=== PATIENT | male | born 1960 | race Caucasian/White ===

== ENCOUNTER 2025-01-08 14:30 | Inpatient (IN) | payer MEDICAID ==
[~2025-01-08] VITALS: Ht 165.1 cm; Wt 64.0 kg
[2025-01-08 15:05] LABS: BASOPHILS % 1.6 % (0.0-2.0); HEMATOCRIT. 31.4 % (42.0-52.0); LYMPHOCYTES % 8.9 % (20.0-50.0); MEAN CORPUSCULAR HEMOGLOBIN 29.8 pg (28.0-32.0); MEAN CORPUSCULAR HGB CONC 31.9 g/dL (31.0-37.0); MEAN CORPUSCULAR VOLUME 93.4 fL (80.0-94.0); MEAN PLATELET VOLUME 8.9 fl (7.4-10.4); MONOCYTES % 12.5 % (2.0-8.0); PLATELET 134 x1000/uL (130-400); RED BLOOD CELL COUNT 3.36 mill/uL (4.7-6.1); RED CELL DISTRIBUTION WIDTH 15.5 % (11.6-14.6); WHITE BLOOD COUNT 5.4 x1000/uL (4.5-11.0)
[2025-01-08 15:14] LABS: INR 1.1; PROTHROMBIN TIME 11.7 sec (9.6-11.0)
[2025-01-08 15:17] LABS: CHLORIDE 95 mEq/L (98-107)
[2025-01-08 15:18] LABS: SODIUM 139 mEq/L (136-145)
[2025-01-08 15:19] LABS: CARBON DIOXIDE 34 mEq/L (21-32)
[2025-01-08 15:20] LABS: CALCIUM 8.7 mg/dL (8.7-10.4)
[2025-01-08 15:24] LABS: CREATININE 2.2 mg/dL (0.6-1.3); GLUCOSE 108 mg/dL (70-105)
[2025-01-08 15:25] LABS: UREA NITROGEN BLOOD 14 mg/dL (9-23)
[2025-01-08 15:26] LABS: ALANINE AMINOTRANSFERASE 8 IU/L (10-49); ALBUMIN 3.4 g/dL (3.2-4.8); ASPARTATE AMINOTRANSFERASE 12 IU/L (<34)
[2025-01-08 15:27] LABS: BILIRUBIN DIRECT 0.3 mg/dL (<=3.0); BILIRUBIN TOTAL 0.5 mg/dL (0.1-1.0); PROTEIN TOTAL 7.2 g/dL (6.0-8.3)
[2025-01-08 15:33] LABS: TROPONIN I HIGH SENSITIVITY 231 ng/L (3.0-53)
[2025-01-08] MEDS: HYDRALAZINE HCL 25MG TABLET PO PRN (17:31)
[2025-01-08] MEDS: POTASSIUM CHLORIDE 20MEQ/PACKET PO NR ×2 (17:31→21:19)
[2025-01-08] MEDS ORDERED: IPRATROPIUM/ALBUTEROL 0.5-3(2.5)MG/3ML NEB HHN PRN (18:15)
[2025-01-08] MEDS ORDERED: ONDANSETRON HCL 4MG/2ML INJ IV PRN (18:15)
[2025-01-08] MEDS ORDERED: ACETAMINOPHEN 325MG TABLET PO PRN (18:15)
[2025-01-08 20:00] VITALS: BP_SYST 154; BP_SYST 177; BP_DIAS 86; BP_DIAS 90; PULSE 60; PULSE 62; RESP 16; RESP 18; TEMP 36.3; TEMP 36.6; O2SAT 94
[2025-01-08 20:45] LABS: AMMONIA < 17 uMol/L (<32)
[2025-01-08 20:46] LABS: PHOSPHORUS 4.3 mg/dL (2.5-4.9)
[2025-01-08] MEDS: ASPIRIN 325MG EC TABLET PO NR (21:19)
[2025-01-08] MEDS: ENOXAPARIN 80MG/0.8ML SYR SUBCUT NR (21:19)
[2025-01-08] MEDS: ATORVASTATIN CALCIUM 40MG TABLET PO SCH (21:20)
[2025-01-08 22:28] LABS: CREATINE KINASE 34 IU/L (46-171)
[2025-01-09] VITALS: BP 158/85; PULSE 66; RESP 16; TEMP 36.3; O2SAT 96
[2025-01-09] MEDS ORDERED: DEXTROSE 50% WATER 50ML SYRINGE IV PRN (02:00)
[2025-01-09 04:00] VITALS: BP 171/92; PULSE 72; RESP 18; TEMP 36.6; O2SAT 95
[2025-01-09] MEDS: CLONIDINE 0.1MG TABLET PO PRN (05:23)
[2025-01-09] MEDS: BLOOD SUGAR DIAGNOSTIC STRIP TEST SCH (06:45)
[2025-01-09] MEDS: PANTOPRAZOLE 40MG DR TABLET PO SCH (06:48)
[2025-01-09] MEDS: INSULIN LISPRO 100 UNITS/ML SUBCUT SCH (07:15)
[2025-01-09 07:41] LABS: HEMATOCRIT 33.2 % (42.0-52.0); HEMOGLOBIN 10.7 g/dL (14.0-18.0); MEAN CORPUSCULAR HEMOGLOBIN 29.9 pg (28.0-32.0); MEAN CORPUSCULAR HGB CONC 32.3 g/dL (31.0-37.0); MEAN CORPUSCULAR VOLUME 92.6 fL (80.0-94.0); PLATELET 139 x1000/uL (130-400); RED BLOOD CELL COUNT 3.59 mill/uL (4.7-6.1); RED CELL DISTRIBUTION WIDTH 15.5 % (11.6-14.6); WHITE BLOOD COUNT 4.7 x1000/uL (4.5-11.0)
[2025-01-09 07:48] LABS: CHLORIDE 98 mEq/L (98-107); POTASSIUM 4.7 mEq/L (3.5-5.1); SODIUM 140 mEq/L (136-145)
[2025-01-09 07:49] LABS: CALCIUM 9.3 mg/dL (8.7-10.4); CARBON DIOXIDE 33 mEq/L (21-32)
[2025-01-09 07:54] LABS: GLUCOSE 89 mg/dL (70-105); UREA NITROGEN BLOOD 23 mg/dL (9-23)
[2025-01-09 07:55] LABS: CREATINE KINASE 30 IU/L (46-171)
[2025-01-09 07:56] LABS: CREATININE 3.1 mg/dL (0.6-1.3); PHOSPHORUS 4.7 mg/dL (2.5-4.9)
[2025-01-09 08:00] VITALS: BP 116/84; PULSE 90; RESP 18; TEMP 37.3
[2025-01-09] MEDS: ASPIRIN 81MG EC TABLET PO SCH (10:42)
[2025-01-09 12:00] VITALS: BP 177/85; PULSE 62; RESP 16; TEMP 36.5; O2SAT 100
[2025-01-09 16:00] VITALS: BP 174/80; PULSE 63; RESP 22; TEMP 36.5; O2SAT 97
[2025-01-09 20:00] VITALS: BP 178/82; PULSE 65; RESP 17; TEMP 36.4; O2SAT 99
[2025-01-09] MEDS: AMLODIPINE 5MG TABLET PO SCH (21:27)
[2025-01-10] VITALS (11 sets, daily range): BP systolic 118–182; BP diastolic 53–86; PULSE 52–67; RESP 15–30; TEMP 36.114–36.7; O2SAT 93–100
[2025-01-10 06:11] LABS: HEMATOCRIT 32.9 % (42.0-52.0); HEMOGLOBIN 10.8 g/dL (14.0-18.0); MEAN CORPUSCULAR HGB CONC 32.7 g/dL (31.0-37.0); MEAN CORPUSCULAR VOLUME 91.8 fL (80.0-94.0); PLATELET 147 x1000/uL (130-400); RED BLOOD CELL COUNT 3.59 mill/uL (4.7-6.1); RED CELL DISTRIBUTION WIDTH 15.4 % (11.6-14.6); WHITE BLOOD COUNT 5.1 x1000/uL (4.5-11.0)
[2025-01-10 06:24] LABS: CHLORIDE 98 mEq/L (98-107); POTASSIUM 4.6 mEq/L (3.5-5.1); SODIUM 140 mEq/L (136-145)
[2025-01-10 06:25] LABS: CALCIUM 9.4 mg/dL (8.7-10.4); CARBON DIOXIDE 32 mEq/L (21-32)
[2025-01-10 06:30] LABS: GLUCOSE 78 mg/dL (70-105); UREA NITROGEN BLOOD 36 mg/dL (9-23)
[2025-01-10 06:33] LABS: PHOSPHORUS 5.8 mg/dL (2.5-4.9)
[2025-01-10 08:44] LABS: CREATININE 4.1 mg/dL (0.6-1.3)
[2025-01-10] MEDS: LOSARTAN 25 MG TABLET PO SCH (09:52)
[2025-01-10 13:29] LABS: HEPATITIS B SURFACE ANTIGEN NEGATIVE (Negative)
[2025-01-10 13:50] LABS: HEPATITIS A AB IGM NEGATIVE (Negative)
[2025-01-10 13:51] LABS: HEPATITIS B CORE AB IGM NEGATIVE (Negative); HEPATITIS C AB NON REACTIVE (Neg) (Negative)
[2025-01-10] MEDS ORDERED: HYDR100T31 PO (13:51)
[2025-01-10] MEDS ORDERED: LIDOCAINE HCL/EPINEPHRINE 1%-EPI 1:100,000 20ML VIAL ONE (15:30)
[2025-01-10] MEDS ORDERED: LIDOCAINE HCL/PF 2% 20MG/ML 5 ML/VIAL ONE (15:50)
[2025-01-10 18:12] LABS: CREATININE 4.7 mg/dL (0.6-1.3)
[2025-01-10 18:54] LABS: BG CARBOXYHEMOGLOBIN 0.9 % (0.5-1.5); BG DEOXYHEMOGLOBIN 9.3 % (0.0-5.0); BG FRACTION INSPIRED OXYGEN 21; BG HCO3 ACT 29.6 mmol/L (21.0-28.0); BG METHEMOGLOBIN 0.3 % (0.5-1.5); BG OXYGEN SATURATION 90.6 % (94.0-98.0); BG OXYHEMOGLOBIN 89.5 % (94.0-98.0); BG PCO2 69.4 mmHg (35.0-48.0); BG PH 7.248 (7.350-7.450); BG PO2 67.9 mmHg (83.0-108.0); BG SAMPLE SITE RIGHT BRACHIAL; BG TOTAL HEMOGLOBIN 11.4 g/dL (13.5-17.5); BG VENT MODE ROOM AIR
[2025-01-10] MEDS: HYDRALAZINE HCL 100MG TABLET PO SCH (19:28)
[2025-01-10] MEDS: CARVEDILOL 3.125 MG TABLET PO SCH (21:37)
[2025-01-11] VITALS (19 sets, daily range): BP systolic 99–176; BP diastolic 57–88; PULSE 53–82; RESP 16–20; TEMP 36.114–36.5; O2SAT 92–98
[2025-01-11 06:18] LABS: CHLORIDE 103 mEq/L (98-107); HEMATOCRIT 35.6 % (42.0-52.0); HEMOGLOBIN 11.6 g/dL (14.0-18.0); MEAN CORPUSCULAR HEMOGLOBIN 30.1 pg (28.0-32.0); MEAN CORPUSCULAR HGB CONC 32.6 g/dL (31.0-37.0); MEAN CORPUSCULAR VOLUME 92.3 fL (80.0-94.0); PLATELET 149 x1000/uL (130-400); POTASSIUM 3.6 mEq/L (3.5-5.1); RED BLOOD CELL COUNT 3.85 mill/uL (4.7-6.1); RED CELL DISTRIBUTION WIDTH 15.5 % (11.6-14.6); SODIUM 142 mEq/L (136-145); WHITE BLOOD COUNT 3.7 x1000/uL (4.5-11.0)
[2025-01-11 06:19] LABS: CALCIUM 9.2 mg/dL (8.7-10.4); CARBON DIOXIDE 31 mEq/L (21-32)
[2025-01-11 06:24] LABS: GLUCOSE 82 mg/dL (70-105); UREA NITROGEN BLOOD 14 mg/dL (9-23)
[2025-01-11 06:27] LABS: PHOSPHORUS 3.5 mg/dL (2.5-4.9)
[2025-01-11 06:48] LABS: CREATININE 2.6 mg/dL (0.6-1.3)
[2025-01-11] MEDS: ACETAMINOPHEN 325MG TABLET PO PRN (06:58)
[2025-01-12] VITALS (7 sets, daily range): BP systolic 127–156; BP diastolic 55–74; PULSE 56–69; RESP 16–18; TEMP 36.2–36.6; O2SAT 95–99
[2025-01-12] MEDS ORDERED: ASPI-1406 PO (11:58)
[2025-01-12] MEDS ORDERED: AMLO5TAB88 PO (11:58)
[2025-01-12] MEDS ORDERED: COR3 PO (11:58)
[2025-01-12] MEDS ORDERED: LIP40 PO (11:58)
[2025-01-12] MEDS: HYDROMORPHONE HCL 2MG TABLET PO NR (12:13)
[2025-01-12] MEDS: ACETAMINOPHEN 500MG TABLET PO NR (15:04)
== END 2025-01-12 15:54 | DRG 180 ==
LOC: ER 14:30 → EDBEDREQ 17:51 → EDBEDREQTM 17:51 → 5WST 18:36
PROVIDERS: ADMIT Internal Medicine; ATTEND Internal Medicine
PROC: 0X6V0Z1 Detachment at Right Little Finger, High, Open Approach (ICD-10-PCS; principal; 2025-01-10)
PROC: 0X6S0Z1 Detachment at Right Ring Finger, High, Open Approach (ICD-10-PCS; 2025-01-10)
PROC: 5A09357 Assistance with Respiratory Ventilation, Less than 24 Consecutive Hours, Continuous Positive Airway Pressure (ICD-10-PCS; 2025-01-10)
PROC: 5A1D70Z Performance of Urinary Filtration, Intermittent, Less than 6 Hours Per Day (ICD-10-PCS; 2025-01-10)
PROC: 5A1D70Z Performance of Urinary Filtration, Intermittent, Less than 6 Hours Per Day (ICD-10-PCS; 2025-01-11)
DX: E11.52 Type 2 diabetes mellitus with diabetic peripheral angiopathy with gangrene (principal); G93.41 Metabolic encephalopathy; I21.A1 Myocardial infarction type 2; I13.2 Hypertensive heart and chronic kidney disease with heart failure and with stage 5 chronic kidney disease, or end stage renal disease; D63.1 Anemia in chronic kidney disease; I95.3 Hypotension of hemodialysis; I08.2 Rheumatic disorders of both aortic and tricuspid valves; N18.6 End stage renal disease; R06.03 Acute respiratory distress; E11.22 Type 2 diabetes mellitus with diabetic chronic kidney disease; I65.23 Occlusion and stenosis of bilateral carotid arteries; E87.6 Hypokalemia; Z95.2 Presence of prosthetic heart valve; D64.9 Anemia, unspecified; I25.10 Atherosclerotic heart disease of native coronary artery without angina pectoris; Z87.891 Personal history of nicotine dependence; I50.22 Chronic systolic (congestive) heart failure; Z89.511 Acquired absence of right leg below knee; Z89.512 Acquired absence of left leg below knee; Z99.2 Dependence on renal dialysis; Z99.3 Dependence on wheelchair
CPT/HCPCS: 36415; 36600; 71045; 80048; 80076; 82140; 82375; 82550; 82728; 82805; 82962; 83036; 83735; 84100; 84484; 85025; 85027; 86038; 86705; 86709; 87340; 88305; 88311; 90935; 93005; 93970; 94660; 99291; A4606; J1650; J1815; J2004; J3490; J7030